=== PATIENT | female | born 1950 | race Caucasian/White ===

== ENCOUNTER 2017-02-07 13:51 | Emergency (ER) | payer OTHER, MEDICARE ==
[~2017-02-07] VITALS: Ht 168.9 cm; Wt 76.4 kg
[2017-02-07 13:55] VITALS: BP 129/63; PULSE 68; RESP 13; O2SAT 97
--- NOTE | 2017-02-07 14:07 | ED.REPORT ---
HPI-Trauma Minor / Fall Date of Service Feb 07, 2017 ED Provider: Kandace Sebastian MD The pt is a 66 y/o female presenting to the ED due to a ground level fall. The pt describes walking over a curb, losing her balance, falling, and landed on her R arm, hand, and face. There was no LOC. She says she is certain that the fall was due to her bum leg due to breaking her foot as a child.She also states that a health information systems technician told her that "her L lobe wasn't shooting" but does not remember the exact details. The pt would like to return to her home in [place] to receive treatment. Nursing Notes Stated Complaint: GLF Chief Complaint: GLF Nursing Notes Reviewed: Yes Allergies: Coded Allergies: morphine (Verified Allergy, Severe, hallucination, 02/07/17) Scheduled PRN oxyCODONE-Acetaminophen 5-325 mg (oxyCODONE-Acetaminophen 5-325 mg) 1 Each Tablet 1-2 TAB PO Q6H PRN PRN For Pain General Time Seen by MD: 14:06 Chief Complaint Fall on outstretched hand Hx Obtained From: Patient Arrived By: Ambulance Onset Occurred: Just prior to arrival Symptom Duration: Since onset Caused by: Fall on ground Recent Healthcare: No recent doctor visit, No recent hospitalization Similar Sx Previous: No Past Medical History Past Medical History Broken L foot She also states that a health information systems technician told her that "her L lobe wasn't shooting" but does not remember the exact details. Past Surgical History None reported Smoking History Unknown if Ever Smoker Social History Other Social History: Good social support, Ambulatory Status Independent Review of Systems Facial abrasions Musculoskeletal: Reports: Extremity pain (R arm and R hand ) Complete sys rev & neg: except as marked. Physical Exam Initial Vital Signs Vital Signs (First) Date Time Temp Pulse Resp B/P Pulse Ox O2 Delivery O2 Flow Rate FiO2 02/07/17 13:55 36.7 68 13 129/63 97 Room Air Initial VS: Reviewed ENT: Mucous membranes moist, Conjunctiva normal, No scleral icterus Respiratory: Breath sounds normal, Clear to auscultation, No respiratory distress Cardiovascular: Regular rate & rhythm, Heart sounds normal, Intact distal pulses Abdomen / GI: Soft, Non-tender Neurologic: Alert, Oriented, Nonfocal Psychiatric: Mood/affect normal, Behavior normal, Normal thought content General/Constitutional: Awake, Alert Neck: Atraumatic, Supple, Full range of motion Upper Extremity / MS: Full range of motion, Neurologic intact, Vascular intact Full ROM at R elbow Swelling over 4th and 5th metacarpals Swelling and tenderness to lateral portion of R hand Skin: No rash, Warm, Dry Abrasions to R side of forehead down bridge of nose and R ala of nose and R upper lip. Abrasions over the L knuckles and brusies to L forearm Bruising to R barajas and R knee Bruise over R elbow Interpretation & Diagnostics ECG Interpretation ECG Interpretation: Rate 70 NSR LBBB Known bundle, no acute changes Time: 15:17 Interpreted by: ED physician X-Ray Interpretation Xray Interpretation: IMPRESSION: Nondisplaced proximal radial head fracture. Dictated by: Keila Boogie M.D. on 02/07/2017 at 13:45 Approved by: Keila Boogie M.D. on 8 X-Ray Ordered: Radius ulna right Interpretation / Wet Read by: Interpret - Radiologist Xray Interpretation: IMPRESSION: Nondisplaced fourth metacarpal base fracture. Dictated by: Keila Boogie M.D. on 02/07/2017 at 13:57 Approved by: Keila Boogie M.D. on 02/07/2017 at 13:57 X-Ray Ordered: Hand right Interpretation / Wet Read by: Interpret - Radiologist Procedures Splint Application - Fx Mgt Time: 16:33 Procedure Performed by: Resaw Machine Operator, Under my direct supervis Precise Anatomic Location: Right ulnar gutter short arm splint Type of Immobilization: Ortho-glass Definitive Fracture Care: Splint Post-Procedure / Complications: Cap refill normal, Post splint vascular nl, Condition improved, Tolerated procedure well, Patient stable Re-Eval/Medical Decision Source of Hx: Old records Counseled Regarding: Diagnosis, Lab results, Need for follow-up, When/why to return to ED Discharge & Departure Impression: Primary Impression: Fracture, radius Additional Impressions: Metacarpal bone fracture Facial abrasion Left bundle branch block Disposition: Home Discharge Condition All VS Reviewed: Yes Condition: Stable Additional Instructions: You did break your wrist and left hand tool filer bone. These will very likely heal nicely with a simple cast. You are welcome to follow up with one of our orthopedists, you are also welcome to return to [place]. I have given you a copy of the x-rays to take with you. Today we have placed you in a splint. You need to keep this clean and dry until a definitive cast can be placed. For pain, you can use 400 mg of ibuprofen (2 of the [id number] pills at one time) and for severe pain, add half a Percocet to that. Using ice and keeping the hand elevated will also help You have an incidentally noted left bundle branch block on her EKG. I suspect this is what your doctor was telling you about previously. I've given you a copy of this to share with your [place] providers. I believe you are corrected in that you simply stumbled and fell. I did not find any other life-threatening causes to explain the fall. I hope your wrist and hand heal nicely. Referrals: [facility] Scribe Attestation Portions of this note were transcribed by Jose Ramon Angel. I, Dr. Sebastian personally performed the history, physical exam and medical decision-making; I reviewed and confirmed the accuracy of the information in the transcribed note. Kandace Sebastian MD Feb 07, 2017 14:07 Jose Ramon Angel Feb 07, 2017 15:10
--- NOTE | 2017-02-07 14:52 | DRSVH ---
PROCEDURE: X-RAY RIGHT FOREARM, TWO VIEWS ([id number]) INDICATIONS: trauma , fall TECHNIQUE: 2 views of the forearm were acquired. COMPARISON: None. FINDINGS: Bones: There is a nondisplaced proximal radial head fracture. Soft tissues: No suspicious soft tissue calcifications or masses. IMPRESSION: Nondisplaced proximal radial head fracture. Dictated by: Keila Boogie M.D. on 02/07/2017 at 13:45 Approved by: Keila Boogie M.D. on 02/07/2017 at 13:50
--- NOTE | 2017-02-07 14:59 | DRSVH ---
PROCEDURE: X-RAY RIGHT HAND, MINIMUM THREE VIEWS ([id number]) INDICATIONS: RIGHT HAND PAIN POST FALL TECHNIQUE: 3 views of the hand(s) acquired. COMPARISON: None. FINDINGS: Bones: There is a mildly displaced fracture at the base of the fourth metacarpal. No definitive intra -articular extension is noted. Soft tissues: No suspicious soft tissue calcifications. IMPRESSION: Nondisplaced fourth metacarpal base fracture. Dictated by: Keila Boogie M.D. on 02/07/2017 at 13:57 Approved by: Keila Boogie M.D. on 02/07/2017 at 13:57
[2017-02-07] MEDS ORDERED: OXYC1TAB24 PO (16:31)
[2017-02-07 16:40] VITALS: BP 142/84; PULSE 72; RESP 14; O2SAT 98
== END 2017-02-07 16:42 | disposition home or self-care (01) ==
LOC: EDSEX 13:51 → SED 13:51 → EDBD 13:51 → SED 16:42
DX: S52.124A Nondisplaced fracture of head of right radius, initial encounter for closed fracture (principal); S62.344A Nondisplaced fracture of base of fourth metacarpal bone, right hand, initial encounter for closed fracture; S00.81XA Abrasion of other part of head, initial encounter; I44.7 Left bundle-branch block, unspecified; W10.1XXA Fall (on)(from) sidewalk curb, initial encounter; Y93.01 Activity, walking, marching and hiking; Y92.480 Sidewalk as the place of occurrence of the external cause; Y99.8 Other external cause status; Z88.5 Allergy status to narcotic agent